=== PATIENT | male | born 2000 | race Two or more races ===

== ENCOUNTER 2023-08-04 15:03 | Outpatient (REF) | payer OTHER, SELFPAY ==
--- NOTE | ~2023-08-04 | MR_ITS ---
EXAMINATION: MRI SHOULDER WITHOUT CONTRAST, LEFT CLINICAL INFORMATION: Pain. COMPARISON: None. TECHNIQUE: MRI of the shoulder without contrast is performed in a 1.5 [employer] high-field scanner. FINDINGS: CORACOACROMIAL ARCH: No significant acromioclavicular arthritis. Small fluid in the subacromial subdeltoid space. Undersurface of the acromion is concave. ROTATOR CUFF: Mild heterogeneous signal in supraspinatus and infraspinatus tendons may reflect mild tendinosis. No measurable tear or tendon retraction. Teres minor is intact. Mild-moderate subscapularis tendinosis. ROTATOR CUFF MUSCLES: No muscle atrophy or fatty infiltration. BICEPS TENDON: Intact LABRUM/CAPSULE: No displaced labral tear is seen. Intact inferior capsule GLENOHUMERAL JOINT/MARROW: No fracture. Small low T1/T2 signal focus in the humeral head, likely a small nonaggressive appearing sclerotic focus, perhaps bone island. Small joint fluid. Suprascapular notch, spinoglenoid notch, quadrilateral space, are unremarkable. Nonspecific subcentimeter left axillary lymph nodes. MR/MR shoulder LT wo con IMPRESSION: 1. Mild supraspinatus and infraspinatus tendinosis. Mild-moderate subscapularis tendinosis. No tendon tear or retraction is seen. 2. No displaced labral tear is seen. 3. Additional findings and details as above.
== END 2023-08-04 15:04 | disposition home or self-care (01) ==
LOC: HO.MRI 15:03
PROVIDERS: Visit Provider Family Medicine
DX: M25.512 Pain in left shoulder (principal)
CPT/HCPCS: 73221

== ENCOUNTER 2023-09-30 14:32 | Outpatient (REF) | payer OTHER, SELFPAY ==
--- NOTE | ~2023-09-30 | MR_ITS ---
EXAMINATION: MR KNEE WITHOUT CONTRAST, LEFT CLINICAL INFORMATION: Left knee pain. COMPARISON: None available. TECHNIQUE: MRI of the knee without contrast was performed using routine sequences on a high-field scanner. FINDINGS: MENISCI: Medial Meniscus: Intact. Lateral Meniscus: Intact. LIGAMENTS: Cruciate: Intact. Collateral: Intact. EXTENSOR MECHANISM: Intact. ARTICULAR CARTILAGE/BONE: Patellofemoral Compartment: Normal patellofemoral alignment. 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 No significant cartilage loss seen. Medial Compartment: No significant cartilage loss. Lateral Compartment: No significant cartilage loss. No fracture no aggressive marrow-replacing lesion. JOINT FLUID AND BURSAE: Small effusion. Small Gutierrez's cyst. Popliteus muscle and tendon are intact. Pes anserine, semimembranosus tendon appear unremarkable. MR/MR knee LT wo con IMPRESSION: 1. Menisci appear intact without evidence of discrete tear. 2. 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 3. Small effusion. Small Gutierrez's cyst.
== END 2023-09-30 14:33 | disposition home or self-care (01) ==
LOC: HO.MRI 14:32
PROVIDERS: Visit Provider Family Medicine
DX: M25.562 Pain in left knee (principal)
CPT/HCPCS: 73721